=== PATIENT | female | born 1990 | race Caucasian/White ===

== ENCOUNTER → 2017-04-13 | Outpatient (CLI) | payer OTHER ==
[~2017-04-13] MED LIST: CLEOCIN300 MG PO; ENDOCET 10-3251 EACH PO; ZITHROMAX Z-PA250 MG PO
== END | disposition home or self-care (01) ==
LOC: CDC 14:27
DX: Z01.810 Encounter for preprocedural cardiovascular examination (principal); M25.531 Pain in right wrist; M67.431 Ganglion, right wrist
CPT/HCPCS: 93000

== ENCOUNTER 2017-06-08 23:18 | Emergency (ER) | payer OTHER ==
[~2017-06-08] VITALS: Ht 157.5 cm; Wt 111.9 kg
[2017-06-08 23:18] VITALS: BP 140/82
== END 2017-06-09 00:17 | disposition left against medical advice (07) ==
LOC: EME → EDBD 23:18 → EME 06-09 00:17
DX: R41.82 Altered mental status, unspecified (principal); R11.2 Nausea with vomiting, unspecified; Z53.20 Procedure and treatment not carried out because of patient's decision for unspecified reasons; F17.210 Nicotine dependence, cigarettes, uncomplicated
CPT/HCPCS: 80048; 82550; 85025; 99281; 99284